=== PATIENT | male | born 1965 | race Two or more races ===

== ENCOUNTER 2025-09-16 19:04 | Emergency (ER) | payer OTHER ==
[~2025-09-16] VITALS: Ht 182.9 cm; Wt 90.7 kg
[2025-09-16 19:13] VITALS: BP 149/79; PULSE 78; RESP 20; TEMP 98; O2SAT 100
== END 2025-09-16 20:51 | disposition left against medical advice (07) ==
LOC: ER 19:04 → EDBD 19:04 → ER 20:51
DX: M25.572 Pain in left ankle and joints of left foot (principal); Z53.21 Procedure and treatment not carried out due to patient leaving prior to being seen by health care provider